=== PATIENT | female | born 1975 | race Caucasian/White ===

== ENCOUNTER → 2021-09-24 | Outpatient (CLI) | payer OTHER ==
--- NOTE | 2021-09-24 16:01 | Diagnostic Imaging Report ---
PROCEDURE: MR imaging cervical spine without contrast. TECHNIQUE: Multiplanar, multisequence MR imaging of the cervical spine was performed without contrast. INDICATION: Neck pain with left arm radiculopathy. COMPARISON: none. FINDINGS: No acute fracture or dislocation is seen in the cervical spine. There is normal alignment of the cervical spine. The vertebral body heights and disc spaces are well maintained. The bone marrow signal is unremarkable. No focal osseous lesions. The craniocervical junction is maintained. The cervical spinal cord demonstrates normal intrinsic signal. No epidural collections are seen. The included brainstem and posterior fossa have normal appearance. Multilevel degenerative changes are seen in the cervical spine with posterior disc bulges and uncovertebral arthropathy. C2-C3: No significant spinal canal or foraminal stenosis. C3-C4: No significant spinal canal or foraminal stenosis. C4-C5: No significant spinal canal or foraminal stenosis. C5-C6: Posterior disc bulge and uncovertebral arthropathy results in mild spinal canal narrowing and mild bilateral foraminal narrowing. C6-C7: Posterior disc bulge and uncovertebral arthropathy results in mild to moderate spinal canal narrowing and no right and mild left foraminal narrowing. C7-T1: No significant spinal canal or foraminal stenosis. The soft tissues of neck are unremarkable. There is suggestion of syrinx in the partially visualized upper thoracic spinal cord. IMPRESSION: 1. No acute fracture or dislocation of the cervical spine. 2. Multilevel degenerative changes in the cervical spine, greatest at C5-C6 and C6-C7. 3. Suggestion of syrinx in the upper thoracic spinal cord. Recommend dedicated MRI of the thoracic spine with and without contrast to further evaluate. Dictated by: Dictated on workstation # [id number]
== END ==
LOC: RAD 12:52
PROVIDERS: ATTEND Orthopaedic Surgery Orthopaedic Surgery of the Spine
DX: M47.22 Other spondylosis with radiculopathy, cervical region (principal); M48.02 Spinal stenosis, cervical region
CPT/HCPCS: 72141

== ENCOUNTER → 2023-06-14 | Outpatient (CLI) | payer MEDICAID ==
--- NOTE | 2023-06-14 12:41 | Diagnostic Imaging Report ---
EXAMINATION: US Abdomen complete. TECHNIQUE: Multiple real-time grayscale images were obtained over the right upper quadrant in various projections. HISTORY: Palpable mass. COMPARISON: None available. FINDINGS: The liver is normal in size. The liver is normal in echogenicity. No focal lesions are seen. The portal vein is patent with hepatopedal flow. Gallbladder is absent. Sonographic Bryan sign is negative. Common duct measures 3 mm. There is no biliary ductal dilation. The visualized portions of the pancreas are normal. The right kidney is normal without hydronephrosis. The left kidney is normal without hydronephrosis. The aorta and inferior vena cava are normal. The spleen is normal. No ascites is seen. IMPRESSION: 1. Unremarkable abdominal ultrasound. Dictated by: Dictated on workstation # [id number]
--- NOTE | 2023-06-14 14:25 | Diagnostic Imaging Report ---
PROCEDURE: Pelvic comp/transvaginal sonogram. TECHNIQUE: Complete transabdominal and transvaginal pelvic ultrasound was performed. In addition, limited pelvic Doppler was performed. INDICATION: Left lower quadrant mass noted on physical exam. Patient's had prior hysterectomy in 2021. Uterus appears to be surgically absent. Patient appears to have a cervix which is unremarkable. Ovaries are not definitely visualized, uncertain if this is owing to a surgical absence versus nonvisualization due to overlying bowel gas. There is a rounded area of hypoechogenicity in the right adnexa approximately 3 cm in size which may represent a cyst. Pelvic Doppler shows no abnormal vascularity in the adnexa. There is no free fluid identified. There is an area of hypoechogenicity in the midline of the pelvis which appears to be posterior to the bladder measuring partly 3.8 x 4.3 cm, indeterminate. IMPRESSION: Surgically absent uterus. There appears to be a 3 cm right adnexal cyst. There is also a separate fluid containing mass in the midline of the pelvis posterior to the bladder which may be a 2nd cyst. CT may be useful for further characterization. No other significant abnormality is detected. Dictated by: Dictated on workstation # [id number]
== END ==
LOC: RAD 09:58
PROVIDERS: ATTEND Nurse Practitioner Women's Health
DX: Z01.419 Encounter for gynecological examination (general) (routine) without abnormal findings (principal); R19.04 Left lower quadrant abdominal swelling, mass and lump; Z90.710 Acquired absence of both cervix and uterus
CPT/HCPCS: 76700; 76830; 76856

== ENCOUNTER 2023-07-11 13:48 | Outpatient (RCR) | payer MEDICAID | END 2023-07-14 | disposition home or self-care (01) | PROVIDERS: ATTEND Nurse Practitioner Women's Health | DX: N39.3 Stress incontinence (female) (male) (principal); I10 Essential (primary) hypertension ==

== ENCOUNTER 2023-08-17 10:57 | Outpatient (RCR) | payer MEDICAID | END 2023-09-13 | disposition home or self-care (01) | PROVIDERS: ATTEND Nurse Practitioner Women's Health | DX: N39.3 Stress incontinence (female) (male) (principal); I10 Essential (primary) hypertension; R10.2 Pelvic and perineal pain ==

== ENCOUNTER → 2023-09-27 | Outpatient (CLI) | payer MEDICAID ==
[~2023-09-27] MED LIST: HOLD METFORMIN - RECEIVED CONTRAST 20 ML VIAL IV SCH
[2023-09-27] MEDS: IOHEXOL 350 MG/ML 100 ML (OMNIPAQUE 350) VIAL IV ONE (13:26)
[2023-09-27] MEDS: CATHETER FLUSH 10 ML SYR IV PRN (13:27)
[2023-09-27] MEDS: NS 100 ML (IVPB) BAG IV ONE (13:27)
--- NOTE | 2023-09-27 15:38 | Diagnostic Imaging Report ---
3-D bilateral screening mammogram with CAD. This is the patient's baseline study. At this time there are no current complaints. There are scattered areas of fibroglandular density in both breasts. There is no primary or secondary sign of malignancy noted. Impression: 1. There is no evidence for malignancy. 2. The patient should have her annual bilateral screening mammogram on schedule in September 2024. ACR BI-RADS Category 1: Negative. Result letter will be mailed to the patient. Note: At least 10% of breast cancer is not imaged by mammography. Dictated by: Dictated on workstation # [id number]
--- NOTE | 2023-09-27 16:09 | Diagnostic Imaging Report ---
EXAMINATION: CT abdomen and pelvis with and without intravenous contrast. TECHNIQUE: Precontrast acquisitions were acquired through the abdomen and pelvis. Multiple contiguous axial images were obtained through the abdomen and pelvis after the administration of intravenous contrast. All CT scans use one or more of the following dose optimizing techniques: automated exposure control, MA and/or KvP adjustment based on patient size and exam type or iterative reconstruction. HISTORY: Abdominal pain, abdominal mass. COMPARISON: None available. FINDINGS: Limited views of the lower thorax are unremarkable. The liver is normal without focal lesion. There is no biliary ductal dilation. Gallbladder is absent. Pancreas is normal. Spleen is normal. Adrenal glands are normal. The kidneys are normal. There is no hydronephrosis. Urinary bladder is normal. Is a fat-containing ventral abdominal hernia. Bowel is normal in caliber without obstruction or inflammation. No free fluid or air. No abdominal or pelvic lymphadenopathy. Aorta is normal in caliber without aneurysm. There are no suspicious osseus lesions. IMPRESSION: 1. Fat-containing ventral abdominal hernia. Dictated by: Dictated on workstation # [id number]
== END ==
LOC: RAD 12:37
PROVIDERS: ATTEND Nurse Practitioner Women's Health
DX: Z12.31 Encounter for screening mammogram for malignant neoplasm of breast (principal)
CPT/HCPCS: 74178; 77063; 77067